=== PATIENT | male | born 1970 | race African-American/Black ===

== ENCOUNTER 2018-01-18 19:27 | Emergency (ER) | payer SELFPAY ==
[2018-01-18] MEDS ORDERED: LORazepam 2 MG/ML VIAL ONE ×2 (19:50→20:56)
[2018-01-18] MEDS ORDERED: THIAMINE 200 MG/2 ML INJ ONE (20:16)
[2018-01-18] MEDS ORDERED: NA CHLORIDE 0.9% 1,000 ML ONE (20:16)
[2018-01-18] MEDS ORDERED: FOLIC ACID 5 MG/ML VIAL ONE (20:17)
[2018-01-18] MEDS ORDERED: CEFTRIAXONE/SWI 1gm 2 GM/20 ML SYR ONE (20:17)
[2018-01-18 20:20] LABS: Barbiturates NEGATIVE (NEGATIVE); Benzodiazepines NEGATIVE (NEGATIVE); Cocaine NEGATIVE (NEGATIVE); METHAMPHETAM NEGATIVE (NEGATIVE); Methadone NEGATIVE (NEGATIVE); Opiates NEGATIVE (NEGATIVE); Phencyclidine NEGATIVE (NEGATIVE); THC Cannibis NEGATIVE (NEGATIVE)
[2018-01-18 20:20] LABS: Arterial Blood Carboxyhemoglob 0.5 % (0-1.5); Blood Gas Oxyhemoglobin 96.7 % (94-97); Blood O2 Saturation 98.1 % (92-98.5)
[2018-01-18 20:27] LABS: ALT/SGPT 20 U/L (12-78); AST/SGOT 15 U/L (15-37); Albumin 4.2 g/dL (3.4-5.0); Alkaline Phosphatase 116 U/L (45-117); BUN Blood Urea Nitrogen 11 mg/dL (7-18); Bicarbonate 21 mmol/L (21-32); Bilirubin Direct 0.1 mg/dL (0-0.2); Bilirubin Total 0.3 mg/dL (0.2-1.0); Glucose Level 99 mg/dL (74-106); Lipase 182 U/L (73-393); Magnesium 2.2 mg/dL (1.8-2.4); NT PRO-BNP 50 pg/mL (<125); Protein, Total 8.2 g/dL (6.4-8.2); Sodium Level 144 mmol/L (136-145); Troponin (Emerg Dept Use Only) < 0.02 ng/mL (0.0-0.045)
[2018-01-18 20:28] LABS: Protime INR 1.03
[2018-01-18 20:32] LABS: Urine Blood NEGATIVE (NEG); Urine Glucose NEGATIVE (NEG); Urine Protein NEGATIVE (NEG); Urine Specific Gravity 1.015 (1.005-1.030); Urine pH 8.5 (5.0-7.0)
--- NOTE | 2018-01-18 20:32 | ER ---
Nurse's Notes [facility] Name: Naeem Melgar Age: 47 yrs Sex: Male : 1970 Arrival Date: 01/18/2018 Time: 19:39 Bed 3 Private MD: Diagnosis: Altered mental status, unspecified-tegretol overdose, toxic;Epileptic seizures related to external causes, not intractable;Bipolar disorder Presentation: 01/18 19:20 Presenting complaint: EMS states: that after not being seen by coworkers and not fc showing up for work for 4 days they called police to do a walfare check on pt. Upon police arrival they had to break into pts home and pt was found on floor in bathroom foaming at the mouth. Pt with eyes open but not responding to any questions. Transition of care: patient was not received from another setting of care. Onset of symptoms was January 18, 2018. Risk Assessment: Do you want to hurt yourself or someone else? Unable to obtain. Initial Sepsis Screen: Does the patient meet any 2 criteria? HR > 90 bpm. Yes Does the patient have a suspected source of infection? No. Patient's initial sepsis screen is negative. Care prior to arrival: None. 19:20 Method Of Arrival: EMS: [facility] 19:20 Acuity: ESPERANZA 2 fc Historical: - Allergies: 19:46 No Known Allergies; fc - Home Meds: 19:46 Unable to obtain [Active]; fc - PMHx: 19:46 Bipolar disorder; fc - PSHx: 19:46 None; fc - Immunization history:: Last tetanus immunization: unknown. - Social history:: Smoking status: Patient uses tobacco products, yes per father. - Ebola Screening: : Patient negative for fever greater than or equal to 101.5 degrees Fahrenheit, and additional compatible Ebola Virus Disease symptoms Patient denies exposure to infectious person Patient denies travel to an Ebola-affected area in the 21 days before illness onset. - Family history:: not pertinent. Screenin:20 Abuse screen: Denies threats or abuse. Nutritional screening: No deficits noted. fc Tuberculosis screening: No symptoms or risk factors identified. Fall Risk Fall in past 12 months (25 points). Secondary diagnosis (15 points) seizures, No IV (0 pts). Ambulatory Aid- None/Bed Rest/Nurse Assist (0 pts). Gait- Normal/Bed Rest/Wheelchair (0 pts) Mental Status- Overestimates/Forgets Limitations (15 pts.). Total Thomas Fall Scale indicates Low Risk Score (25-44 pts). Fall prevention measures have been instituted. Side Rails Up X 2 Placed close to Nursing Station Frequent Obs/Assesments occuring As available Patient and Family Educated on Fall Prevention Program and strategies. Assessment: 19:42 General: Appears in no apparent distress. Behavior is inappropriate for age, listless, aa1 Smells of urine. Pain: Unable to use pain scale. Patient is disoriented. Neuro: Level of Consciousness is awake, listless, Oriented to pt does not respond verbally or participate with assessment. Moves all extremities. Pt moves all extremities when transferred from EMS stretcher however pt does not follow commands and withdraws from noxious stimuli. . Facial symmetry appears normal, Pupils are constricted. Cardiovascular: Heart tones S1 S2 present Rhythm is regular. Respiratory: Airway is patent Respiratory effort is even, unlabored, Respiratory pattern is regular, symmetrical. GI: Abdomen is non-distended. : No deficits noted. EENT: No deficits noted. Derm: Skin is intact, is healthy with good turgor, Skin is pink, warm \T\ dry. Musculoskeletal: Circulation, motion, and sensation intact. Capillary refill < 3 seconds. 20:07 Reassessment: Patient appears in no apparent distress at this time. Accompanied pt to aa CT on monitor. 20:17 Reassessment: Pt back from CT. Father and sister at bedside; updated on pt status and aa1 POC. 21:05 Reassessment: Patient appears in no apparent distress at this time. No changes from aa1 previously documented assessment. Patient and/or family updated on plan of care and expected duration. Pain level reassessed. Father \T\ sister remain at bedside. Report given to LUCA Sinclair at [facility] and transfer paper work signed by father at this time. Awaiting [facility] for transport. 21:45 Reassessment: Patient appears in no apparent distress at this time. No changes from aa1 previously documented assessment. [facility] present for transport. Vital Signs: 19:20 BP 157 / 116; Pulse 96; Resp 20; Temp 98.1(O); Pulse Ox 100% on R/A; Weight 104.33 kg; fc Height 5 ft. 7 in. (170.18 cm); Pain 0/10; 20:00 BP 136 / 91; Pulse 89; Resp 18; Pulse Ox 100% on 2 lpm NC; aa1 21:00 BP 125 / 81; Pulse 86; Resp 16; Temp 97.5; Pulse Ox 100% on 2 lpm NC; aa1 21:45 BP 117 / 75; Pulse 85; Resp 16; Temp 97.2; Pulse Ox 100% on 2 lpm NC; aa1 19:20 Body Mass Index 36.02 (104.33 kg, 170.18 cm) Jose Coma Score: 19:45 Eye Response: spontaneous(4). Verbal Response: none(1). Motor Response: withdraws from aa1 pain(4). Total: 9. 21:45 Eye Response: spontaneous(4). Verbal Response: none(1). Motor Response: withdraws from aa1 pain(4). Total: 9. ED Course: 19:20 Arm band placed on Patient placed in an exam room, on a stretcher. 19:20 Patient has correct armband on for positive identification. Bed in low position. Call fc light in reach. Side rails up X2. Seizure precautions initiated. biochemistry technician on. Pulse ox on. NIBP on. 19:32 Inserted saline lock: 22 gauge in right forearm, using aseptic technique. ,using aseptic technique. per Eduarda SEGOVIA. 19:39 Patient arrived in ED. fc 19:40 Phil Mohan MD is Attending Physician. abdias 19:43 Triage completed. fc 19:[address] via stretcher. vm2 19:50 Oxygen administration via nasal cannula \T\ 2L/min. aa1 19:55 Clemens cath inserted, using sterile technique, 16 Fr., by pa, balloon inflated, to aa1 gravity drainage, urine specimen collected. other Criticore clemens used returned cloudy urine. Patient tolerated well. 20:06 CT Head C Spine In Process Unspecified. EDMS 20:06 CT completed. Patient tolerated procedure well. Patient moved back from CT. nj 20:07 RN/HISTOLOGY AIDE escort patient out of department to CT scan with oxygen, digital account coordinator, ER aa1 tech. 20:10 Urine Dipstick--Ancillary (enter results) Sent. ds4 20:10 Urine Drug Screen Sent. ds4 20:11 EKG done, by ED staff, reviewed by Phil Mohan MD. ds4 20:20 XRAY Chest (1 view) In Process Unspecified. EDMS 20:20 Eduarda Puckett, RN is Primary Nurse. aa1 21:45 No provider procedures requiring assistance completed. Patient transferred, IV remains aa1 in place. Administered Medications: 19:40 Drug: Ativan 2 mg Route: IVP; Site: right forearm; ea 20:40 Follow up: Response: No adverse reaction; Marked relief of symptoms aa1 20:19 Drug: NS 0.9% 1000 ml Route: IV; Rate: 1 bolus; Site: right forearm; ea 20:19 Drug: Thiamine 100 mg Route: IV; Rate: bolus; Site: right forearm; ea 20:50 Follow up: IV Status: Completed infusion aa1 20:20 Drug: foLIC Acid 1 mg Route: IVPB; Site: right forearm; ea 20:33 Drug: Keppra 1000 mg Route: IV; Rate: per protocol; Site: right forearm; aa1 21:09 Follow up: IV Status: Completed infusion aa1 20:34 Drug: Rocephin - (cefTRIAXone) 2 grams Route: IVPB; Infused Over: 30 mins; Site: right ea forearm; 21:09 Follow up: IV Status: Completed infusion aa1 20:46 CANCELLED (Duplicate Order): Benadryl 25 mg IVP once abdias 20:47 CANCELLED (Duplicate Order): COgentin 1 mg IVP once abdias 20:50 Drug: COgentin 2 mg Route: IVP; Site: right forearm; aa1 21:45 Follow up: Response: No adverse reaction; Marked relief of symptoms aa1 20:50 Drug: Ativan 1 mg Route: IVP; Site: right forearm; aa1 21:45 Follow up: Response: No adverse reaction; Marked relief of symptoms aa1 Point of Care Testing: Blood Glucose: 19:50 Blood Glucose: 103 mg/dL; ea Ranges: Outcome: 20:31 ER care complete, transfer ordered by . abdias 21:45 Transferred by ground EMS to [facility], Transfer form completed. aa1 21:45 Condition: stable 21:45 Discharge instructions given to family, Instructed on the need for transfer, Demonstrated understanding of instructions. 21:59 Patient left the ED. aa1 Signatures: Dispatcher [employer] EDMS Eduarda Puckett, RN RN aa1 Phil Mohan MD MD cha Chretien, Felicia, RN RN fc Adama Tovar ds4 Joel Araujo Victoria 2 Ioana Smith RN RN ea
--- NOTE | 2018-01-18 20:32 | EDPHYS ---
Physician Documentation [facility] Name: Naeem Melgar Age: 47 yrs Sex: Male : 1970 Arrival Date: 01/18/2018 Time: 19:39 Bed 3 Private MD: ED Physician Phil Mohan HPI: 01/18 19:43 This 47 yrs old Black Male presents to ER via Unassigned with complaints of Probable abidas Seizure. 19:43 The patient presents after having a possible seizure episode. Character of seizure(s): abdias Loss of consciousness: it is not known if the patient experienced loss of consciousness, Motor activity: generalized, Incontinence: incontinent of bladder, Apnea: it is not know whether or not the patient experienced apnea, Circulation: the patient did not experience evidence of pulse disturbance. Seizure onset: the onset is not known. Context: the seizure(s) was witnessed, by no one. Seizure Hx: the patient has no previous seizure history. Associated injury: The patient did not suffer any apparent associated injury. The patient has not experienced similar symptoms in the past. Historical: - Allergies: 19:46 No Known Allergies; fc - Home Meds: 19:46 Unable to obtain [Active]; fc - PMHx: 19:46 Bipolar disorder; fc - PSHx: 19:46 None; fc - Immunization history:: Last tetanus immunization: unknown. - Social history:: Smoking status: Patient uses tobacco products, yes per father. - Ebola Screening: : Patient negative for fever greater than or equal to 101.5 degrees Fahrenheit, and additional compatible Ebola Virus Disease symptoms Patient denies exposure to infectious person Patient denies travel to an Ebola-affected area in the 21 days before illness onset. - Family history:: not pertinent. ROS: 19:43 Constitutional: Positive for malaise, poor PO intake. abdias 19:43 Neuro: Positive for altered mental status, seizure activity, weakness. 19:47 Respiratory: Negative for shortness of breath, cough, wheezing, and pleuritic chest abdias pain, Back: Negative for injury and pain, Skin: Negative for injury, rash, and discoloration. 19:47 Eyes: Positive for 19:47 Neck: Positive for stiffness. 19:47 Respiratory: Negative for cough. 19:47 MS/extremity: Positive for decreased range of motion, of the right arm, left arm, right leg and left leg. 19:47 Neuro: Positive for Exam: 19:43 Head/Face: Normocephalic, atraumatic. ENT: Nares patent. No nasal discharge, no abdias septal abnormalities noted. Tympanic membranes are normal and external auditory canals are clear. Oropharynx with no redness, swelling, or masses, exudates, or evidence of obstruction, uvula midline. Mucous membranes moist. Respiratory: Lungs have equal breath sounds bilaterally, clear to auscultation and percussion. No rales, rhonchi or wheezes noted. No increased work of breathing, no retractions or nasal flaring. Abdomen/GI: Soft, non-tender, with normal bowel sounds. No distension or tympany. No guarding or rebound. No evidence of tenderness throughout. Male : Normal genitalia with no discharge or lesions. Skin: Warm, dry with normal turgor. Normal color with no rashes, no lesions, and no evidence of cellulitis. MS/ Extremity: Pulses equal, no cyanosis. Neurovascular intact. Full, normal range of motion. 19:43 Neck: External neck: is normal. 19:43 Cardiovascular: Rate: normal, Rhythm: regular, Pulses: Pulses are 4+ in bilateral radial, brachial, femoral, popliteal, posterior tibial and and dorsalis pedis arteries.. Heart sounds: normal, Edema: JVD: is not appreciated. Vital Signs: 19:20 BP 157 / 116; Pulse 96; Resp 20; Temp 98.1(O); Pulse Ox 100% on R/A; Weight 104.33 kg; fc Height 5 ft. 7 in. (170.18 cm); Pain 0/10; 20:00 BP 136 / 91; Pulse 89; Resp 18; Pulse Ox 100% on 2 lpm NC; aa1 21:00 BP 125 / 81; Pulse 86; Resp 16; Temp 97.5; Pulse Ox 100% on 2 lpm NC; aa1 21:45 BP 117 / 75; Pulse 85; Resp 16; Temp 97.2; Pulse Ox 100% on 2 lpm NC; aa1 19:20 Body Mass Index 36.02 (104.33 kg, 170.18 cm) Jose Coma Score: 19:45 Eye Response: spontaneous(4). Verbal Response: none(1). Motor Response: withdraws from aa1 pain(4). Total: 9. 21:45 Eye Response: spontaneous(4). Verbal Response: none(1). Motor Response: withdraws from aa1 pain(4). Total: 9. MDM: 19:40 Patient medically screened. [facility] 19:43 Data reviewed: vital signs, nurses notes, lab test result(s), EKG, radiologic studies. [facility] 01/18 19:42 Order name: Basic Metabolic Panel; Complete Time: 20:28 [facility] 01/18 19:42 Order name: CBC with Diff; Complete Time: 21:22 [facility] 01/18 19:42 Order name: LFT's; Complete Time: 20:28 [facility] 01/18 19:42 Order name: Magnesium; Complete Time: 20:28 [facility] 01/18 19:42 Order name: NT PRO-BNP; Complete Time: 20:28 [facility] 01/18 19:42 Order name: PT-INR; Complete Time: 20:35 [facility] 01/18 19:42 Order name: Troponin (emerg Dept Use Only); Complete Time: 20:28 [facility] 01/18 19:42 Order name: Lipase; Complete Time: 20:28 [facility] 01/18 19:42 Order name: Acetaminophen; Complete Time: 20:28 [facility] 01/18 19:42 Order name: ETOH Level; Complete Time: 20:28 [facility] 01/18 19:42 Order name: Ptt, Activated; Complete Time: 20:35 [facility] 01/18 19:42 Order name: Salicylate; Complete Time: 20:43 [facility] 01/18 19:42 Order name: Urine Drug Screen; Complete Time: 20:28 [facility] 01/18 19:42 Order name: ABG; Complete Time: 20:35 [facility] 01/18 19:42 Order name: XRAY Chest (1 view); Complete Time: 20:43 [facility] 01/18 19:42 Order name: CT Head C Spine; Complete Time: 20:43 [facility] 01/18 19:47 Order name: Blood Culture Adult (2) [facility] 01/18 19:47 Order name: Procalcitonin; Complete Time: 20:43 [facility] 01/18 19:47 Order name: Lactate; Complete Time: 21:22 [facility] 01/18 20:01 Order name: Urine Dipstick--Ancillary (enter results); Complete Time: 20:35 ok 01/18 20:33 Order name: Tegretol Level; Complete Time: 21:24 [facility] 01/18 20:38 Order name: CK; Complete Time: 21:22 [facility] 01/18 20:38 Order name: Ckmb; Complete Time: 21:22 [facility] 01/18 20:39 Order name: TSH; Complete Time: 21:22 [facility] 01/18 21:07 Order name: Manual Differential; Complete Time: 21:22 EDMS 01/18 19:42 Order name: EKG; Complete Time: 19:43 [facility] 01/18 19:42 Order name: Cardiac monitoring; Complete Time: 20:10 [facility] 01/18 19:42 Order name: EKG - Nurse/Tech; Complete Time: 20:10 [facility] 01/18 19:42 Order name: IV Saline Lock; Complete Time: 20:10 [facility] 01/18 19:42 Order name: Labs collected and sent; Complete Time: 20:11 [facility] 01/18 19:42 Order name: O2 Per Protocol; Complete Time: 20:11 [facility] 01/18 19:42 Order name: O2 Sat Monitoring; Complete Time: 20:11 [facility] 01/18 19:42 Order name: Urine Dipstick-Ancillary (obtain specimen); Complete Time: 20:10 [facility] 01/18 19:42 Order name: De Los Santos; Complete Time: 19:59 [facility] 01/18 19:42 Order name: Seizure Precautions; Complete Time: 20:25 [facility] Administered Medications: 19:40 Drug: Ativan 2 mg Route: IVP; Site: right forearm; ea 20:40 Follow up: Response: No adverse reaction; Marked relief of symptoms aa1 20:19 Drug: NS 0.9% 1000 ml Route: IV; Rate: 1 bolus; Site: right forearm; ea 20:19 Drug: Thiamine 100 mg Route: IV; Rate: bolus; Site: right forearm; ea 20:50 Follow up: IV Status: Completed infusion aa1 20:20 Drug: foLIC Acid 1 mg Route: IVPB; Site: right forearm; ea 20:33 Drug: Keppra 1000 mg Route: IV; Rate: per protocol; Site: right forearm; aa1 21:09 Follow up: IV Status: Completed infusion aa1 20:34 Drug: Rocephin - (cefTRIAXone) 2 grams Route: IVPB; Infused Over: 30 mins; Site: right ea forearm; 21:09 Follow up: IV Status: Completed infusion aa1 20:46 CANCELLED (Duplicate Order): Benadryl 25 mg IVP once [facility] 20:47 CANCELLED (Duplicate Order): COgentin 1 mg IVP once abdias 20:50 Drug: COgentin 2 mg Route: IVP; Site: right forearm; aa1 21:45 Follow up: Response: No adverse reaction; Marked relief of symptoms aa1 20:50 Drug: Ativan 1 mg Route: IVP; Site: right forearm; aa1 21:45 Follow up: Response: No adverse reaction; Marked relief of symptoms aa1 Point of Care Testing: Blood Glucose: 19:50 Blood Glucose: 103 mg/dL; ea Ranges: Critical Glucose Levels:Adult <50 mg/dl or >400 mg/dl <40 mg/dl or >180 mg/dl Disposition: 01/18/18 20:31 Transfer ordered to [facility]. Diagnosis are Altered mental status, unspecified - tegretol overdose, toxic, Epileptic seizures related to external causes, not intractable, Bipolar disorder. - Reason for transfer: Higher level of care. - Accepting physician is to [facility]. - Condition is Serious. - Problem is new. - Symptoms have improved. Signatures: Dispatcher [employer] EDMS Eduarda Puckett RN RN aa1 Phil Mohan MD MD cha Chretien, Felicia, RN RN Ioana Smith RN RN ea Corrections: (The following items were deleted from the chart) 20:46 20:46 Benadryl 25 mg IVP once ordered. [facility] 20:47 20:46 COgentin 1 mg IVP once ordered. [facility] 21:32 20:31 01/18/2018 20:31 Transfer ordered to [facility]. Diagnosis is abdias Altered mental status, unspecified; Epileptic seizures related to external causes, not intractable; Bipolar disorder. Reason for transfer: Higher level of care. Accepting physician is to [facility]. Condition is Serious. Problem is new. Symptoms have improved. [facility] 21:59 21:32 01/18/2018 20:31 Transfer ordered to [facility]. Diagnosis is aa1 Altered mental status, unspecified - tegretol overdose, toxic; Epileptic seizures related to external causes, not intractable; Bipolar disorder. Reason for transfer: Higher level of care. Accepting physician is to [facility]. Condition is Serious. Problem is new. Symptoms have improved. abdias
[2018-01-18 20:34] LABS: Absolute Lymphocytes (CBC) 0.5 K/uL (0.7-4.9); Absolute Monocytes 0.4 K/uL (0.1-1.3); Absolute Neutrophil 11.8 K/uL (1.8-8.0); Basophils % 1.8 % (0-1.3); Eosinophils % 0.2 % (0-4.4); Hematocrit 46.5 % (39.6-49.0); Lymphocytes % 3.8 % (15.3-44.8); MCH 31.7 pg (27.0-35.0); MCV 95.5 fL (80-100); MPV 9.4 fL (7.6-11.3); Monocytes % 2.8 % (3.3-12.3); RBC Red Blood Cell Count 4.87 M/uL (4.33-5.43)
--- NOTE | 2018-01-18 20:35 | RAD REPORT ---
EXAM DESCRIPTION: CT - [id number] - 01/18/2018 8:06 pm CLINICAL HISTORY: Trauma, head and neck injury. ams;Weakness COMPARISON: No comparisons TECHNIQUE: Axial 5 mm thick images of the head were obtained. Axial 2 mm thick images of the cervical spine were obtained with sagittal and coronal reconstruction images generated and reviewed. All CT scans are performed using dose optimization technique as appropriate and may include automated exposure control or mA/KV adjustment according to patient size. FINDINGS: CT HEAD WITHOUT CONTRAST: No acute hemorrhage, hydrocephalus or extra-axial collection is identified.No areas of brain edema or midline shift. Gliosis involving the right temporal lobe is likely related to previous trauma or inf arct. The paranasal sinuses and mastoids are clear.The calvarium is intact. CT CERVICAL SPINE WITHOUT CONTRAST: No fracture or subluxation.Large anterior osteophytes are present.No prevertebral soft tissues swelli ng is identified. The upper are lung joshua are emphysematous. IMPRESSION: No acute intracranial or cervical spine findings.
--- NOTE | 2018-01-18 20:36 | RAD REPORT ---
EXAM DESCRIPTION: RAD - Chest Single View - 01/18/2018 8:21 pm CLINICAL HISTORY: COUGH Chest pain. COMPARISON: No comparisons FINDINGS: Portable technique limits examination quality. The lungs are grossly clear. The heart is normal in size. No displaced fractures. IMPRESSION: No acute intrathoracic process suspected.
[2018-01-18] MEDS ORDERED: BENZTROPINE 2 MG/2 ML VIAL ONE (20:56)
[2018-01-18 21:02] LABS: CKMB Creatine Kinase MB < 1.0 ng/mL (0.3-3.6); Creatine Phosphokinase 216 U/L (39-308); Thyroid Stimulating Hormone 0.125 uIU/mL (0.360-3.740)
[2018-01-18 21:08] LABS: Blood Morphology Comment NOT SEEN (NOT SEEN); Platelet Estimate ADEQ
--- NOTE | 2018-01-19 06:29 | EKG ---
Test Date: 2018-01-18 Test Time: 19:55:25 Accounting Officer: ISAI MEASUREMENT RESULTS: Intervals: Rate: 91 MO: 188 QRSD: 90 QT: 378 QTc: 464 Silva: P: 54 MO: 188 QRS: 23 T: 43 INTERPRETIVE STATEMENTS: Normal sinus rhythm Nonspecific ST abnormality Abnormal ECG No previous ECG available for comparison Electronically Signed On 01-19-18 06:28:50 SOFTWARE DEVELOPMENT COORDINATOR by Rahat Caba
== END 2018-01-18 21:59 | disposition short-term general hospital (02) ==
LOC: ER 19:27
DX: T42.1X1A Poisoning by iminostilbenes, accidental (unintentional), initial encounter (principal); G40.509 Epileptic seizures related to external causes, not intractable, without status epilepticus; F31.9 Bipolar disorder, unspecified; Z72.0 Tobacco use
CPT/HCPCS: 36415; 51702; 70450; 71045; 72125; 80048; 80076; 80156; 80307; 80320; 80329; 81003; 82550; 82553; 82805; 82962; 83605; 83690; 83735; 83880; 84145; 84443; 84484; 85025; 85610; 85730; 87040; 87205; 93005; 96365; 96367; 96375; 99285; J0515; J0696; J3411; J7030

== ENCOUNTER 2018-03-17 15:50 | Emergency (ER) | payer SELFPAY ==
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
--- OUTSIDE RECORDS SUMMARY | 2018-03-17 15:55 | XMS REPORT ---
:1970 [facility] Address [address] [place] [address] Care Team Providers Name Role Phone GOSIA FULLER Unavailable Unavailable Problems This patient has no known problems. Allergies, Adverse Reactions, Alerts This patient has no known allergies or adverse reactions. Medications This patient has no known medications. Results Test Description Test Time Test Comments Text Results Atomic Results Result Comments POCT-GLUCOSE METER 2018-01-24 12:11:00 Test Item Value Reference Range Comments POC-GLUCOSE METER (BEAKER) (test 86 mg/dL 70-110 TESTED AT [address] cltx=0881) [place] [id number] POCT-GLUCOSE [id number] 08:39:00 Test Item Value Reference Range Comments POC-GLUCOSE METER (BEAKER) 111 mg/dL 70-110 TESTED AT [address] (test lbxp=0717) [facility] [address] BASIC METABOLIC [id number] 06:12:00 Test Item Value Reference Range Comments SODIUM (BEAKER) (test 142 meq/L 136-145 zrtm=525) POTASSIUM (BEAKER) (test 3.7 meq/L 3.5-5.1 mrto=142) CHLORIDE (BEAKER) (test 113 meq/L 98-107 llia=338) CO2 (BEAKER) (test 25 meq/L 22-29 ejge=726) BLOOD UREA NITROGEN 13 mg/dL 7-21 (BEAKER) (test bxgf=303) CREATININE (BEAKER) (test 0.82 mg/dL 0.57-1.25 erma=598) GLUCOSE RANDOM (BEAKER) 89 mg/dL 70-105 (test tjjt=348) CALCIUM (BEAKER) (test 9.0 mg/dL 8.4-10.2 jblx=424) EGFR (BEAKER) (test mL/min/1.73 sq m INSUFFICIENT CLINICAL DATA lwmt=3388) TO CALCULATE ESTIMATED GFR. CBC W/PLT COUNT & AUTO [id number] 05:34:00 Test Item Value Reference Range Comments WHITE BLOOD CELL COUNT (BEAKER) (test hzzi=393) 8.5 K/ L 3.5-10.5 RED BLOOD CELL COUNT (BEAKER) (test cxzl=681) 4.23 M/ L 4.63-6.08 HEMOGLOBIN (BEAKER) (test znbt=671) 13.2 GM/DL 13.7-17.5 HEMATOCRIT (BEAKER) (test eaog=821) 38.8 % 40.1-51.0 MEAN CORPUSCULAR VOLUME (BEAKER) (test npfx=928) 91.7 fL 79.0-92.2 MEAN CORPUSCULAR HEMOGLOBIN (BEAKER) (test 31.2 pg 25.7-32.2 conz=446) MEAN CORPUSCULAR HEMOGLOBIN CONC (BEAKER) (test 34.0 GM/DL 32.3-36.5 uxxe=790) RED CELL DISTRIBUTION WIDTH (BEAKER) (test 13.6 % 11.6-14.4 ihal=934) PLATELET COUNT (BEAKER) (test gipu=742) 259 K/CU MM 150-450 MEAN PLATELET VOLUME (BEAKER) (test vnpr=515) 10.4 fL 9.4-12.4 NUCLEATED RED BLOOD CELLS (BEAKER) (test 0 /100 WBC 0-0 tuyj=893) NEUTROPHILS RELATIVE PERCENT (BEAKER) (test 53 % iemq=873) LYMPHOCYTES RELATIVE PERCENT (BEAKER) (test 35 % zsuo=141) MONOCYTES RELATIVE PERCENT (BEAKER) (test 9 % vjrr=397) EOSINOPHILS RELATIVE PERCENT (BEAKER) (test 3 % uqva=771) BASOPHILS RELATIVE PERCENT (BEAKER) (test 1 % loqw=280) NEUTROPHILS ABSOLUTE COUNT (BEAKER) (test 4.53 K/ L 1.78-5.38 mkma=969) LYMPHOCYTES ABSOLUTE COUNT (BEAKER) (test 2.95 K/ L 1.32-3.57 otty=701) MONOCYTES ABSOLUTE COUNT (BEAKER) (test 0.77 K/ L 0.30-0.82 ugox=005) EOSINOPHILS ABSOLUTE COUNT (BEAKER) (test 0.21 K/ L 0.04-0.54 wtmo=087) BASOPHILS ABSOLUTE COUNT (BEAKER) (test 0.05 K/ L 0.01-0.08 pmsm=287) IMMATURE GRANULOCYTES-RELATIVE PERCENT (BEAKER) 0 % 0-1 (test acgr=8007) BLOOD [id number] 05:01:00 Test Item Value Reference Range Comments CULTURE (BEAKER) (test oisj=9548) No growth in 5 days BLOOD [id number] 05:01:00 Test Item Value Reference Range Comments CULTURE (BEAKER) (test ddid=5249) No growth in 5 days POCT-GLUCOSE [id number] 21:53:00 Test Item Value Reference Range Comments POC-GLUCOSE METER (BEAKER) 104 mg/dL 70-110 TESTED AT [address] (test xncb=5444) [place] [id number] POCT-GLUCOSE [id number] 16:41:00 Test Item Value Reference Range Comments POC-GLUCOSE METER (BEAKER) 92 mg/dL 70-110 TESTED AT [address] (test ywpt=9078) [place] [id number] POCT-GLUCOSE [id number] 11:59:00 Test Item Value Reference Range Comments POC-GLUCOSE METER (BEAKER) 89 mg/dL 70-110 TESTED AT [address] (test atmd=1822) [facility] [address] BASIC METABOLIC [id number] 09:09:00 Test Item Value Reference Range Comments SODIUM (BEAKER) (test 141 meq/L 136-145 jnjt=801) POTASSIUM (BEAKER) (test 3.1 meq/L 3.5-5.1 ikak=718) CHLORIDE (BEAKER) (test 111 meq/L 98-107 qgbk=666) CO2 (BEAKER) (test 24 meq/L 22-29 sacr=773) BLOOD UREA NITROGEN 8 mg/dL 7-21 (BEAKER) (test gwdb=799) CREATININE (BEAKER) (test 0.87 mg/dL 0.57-1.25 ksfe=492) GLUCOSE RANDOM (BEAKER) 145 mg/dL 70-105 (test zerb=862) CALCIUM (BEAKER) (test 9.3 mg/dL 8.4-10.2 dbdj=270) EGFR (BEAKER) (test mL/min/1.73 sq m INSUFFICIENT CLINICAL DATA djbv=2340) TO CALCULATE ESTIMATED GFR. CBC W/PLT COUNT & AUTO [id number] 06:12:00 Test Item Value Reference Range Comments WHITE BLOOD CELL COUNT (BEAKER) (test bbot=143) 7.6 K/ L 3.5-10.5 RED BLOOD CELL COUNT (BEAKER) (test tbdx=596) 4.32 M/ L 4.63-6.08 HEMOGLOBIN (BEAKER) (test cqbb=295) 13.6 GM/DL 13.7-17.5 HEMATOCRIT (BEAKER) (test ycsj=885) 39.6 % 40.1-51.0 MEAN CORPUSCULAR VOLUME (BEAKER) (test mjxb=899) 91.7 fL 79.0-92.2 MEAN CORPUSCULAR HEMOGLOBIN (BEAKER) (test 31.5 pg 25.7-32.2 prxb=495) MEAN CORPUSCULAR HEMOGLOBIN CONC (BEAKER) (test 34.3 GM/DL 32.3-36.5 jdco=392) RED CELL DISTRIBUTION WIDTH (BEAKER) (test 13.2 % 11.6-14.4 okjr=907) PLATELET COUNT (BEAKER) (test oofa=500) 256 K/CU MM 150-450 MEAN PLATELET VOLUME (BEAKER) (test skof=193) 10.0 fL 9.4-12.4 NUCLEATED RED BLOOD CELLS (BEAKER) (test 0 /100 WBC 0-0 bkse=306) NEUTROPHILS RELATIVE PERCENT (BEAKER) (test 45 % kpoa=219) LYMPHOCYTES RELATIVE PERCENT (BEAKER) (test 43 % xseb=224) MONOCYTES RELATIVE PERCENT (BEAKER) (test 9 % vodr=351) EOSINOPHILS RELATIVE PERCENT (BEAKER) (test 3 % ltyp=919) BASOPHILS RELATIVE PERCENT (BEAKER) (test 0 % bgdr=687) NEUTROPHILS ABSOLUTE COUNT (BEAKER) (test 3.39 K/ L 1.78-5.38 bzvj=429) LYMPHOCYTES ABSOLUTE COUNT (BEAKER) (test 3.26 K/ L 1.32-3.57 ovyy=235) MONOCYTES ABSOLUTE COUNT (BEAKER) (test 0.71 K/ L 0.30-0.82 enck=389) EOSINOPHILS ABSOLUTE COUNT (BEAKER) (test 0.19 K/ L 0.04-0.54 wtml=046) BASOPHILS ABSOLUTE COUNT (BEAKER) (test 0.03 K/ L 0.01-0.08 cafh=357) IMMATURE GRANULOCYTES-RELATIVE PERCENT (BEAKER) 0 % 0-1 (test zyxe=9902) POCT-GLUCOSE [id number] 23:30:00 Test Item Value Reference Range Comments POC-GLUCOSE METER (BEAKER) 100 mg/dL 70-110 TESTED AT [address] (test htdz=8819) [facility] [address] POCT-GLUCOSE [id number] 17:12:00 Test Item Value Reference Range Comments POC-GLUCOSE METER (BEAKER) 102 mg/dL 70-110 TESTED AT [address] (test fuur=9061) [place] [id number] POCT-GLUCOSE [id number] 12:08:00 Test Item Value Reference Range Comments POC-GLUCOSE METER (BEAKER) 117 mg/dL 70-110 TESTED AT [address] (test gdpm=9204) [place] [id number] BASIC METABOLIC [id number] 06:24:00 Test Item Value Reference Range Comments SODIUM (BEAKER) (test 142 meq/L 136-145 cmcs=228) POTASSIUM (BEAKER) (test 3.3 meq/L 3.5-5.1 ixkr=593) CHLORIDE (BEAKER) (test 114 meq/L 98-107 fwzy=034) CO2 (BEAKER) (test 22 meq/L 22-29 ywin=469) BLOOD UREA NITROGEN 11 mg/dL 7-21 (BEAKER) (test dvtv=501) CREATININE (BEAKER) (test 0.86 mg/dL 0.57-1.25 ixhl=556) GLUCOSE RANDOM (BEAKER) 107 mg/dL 70-105 (test fovd=730) CALCIUM (BEAKER) (test 9.3 mg/dL 8.4-10.2 xaam=469) EGFR (BEAKER) (test mL/min/1.73 sq m INSUFFICIENT CLINICAL DATA akdr=9336) TO CALCULATE ESTIMATED GFR. CBC W/PLT COUNT & AUTO [id number] 05:44:00 Test Item Value Reference Range Comments WHITE BLOOD CELL COUNT (BEAKER) (test igsr=474) 8.8 K/ L 3.5-10.5 RED BLOOD CELL COUNT (BEAKER) (test abnp=447) 4.45 M/ L 4.63-6.08 HEMOGLOBIN (BEAKER) (test jmif=448) 14.0 GM/DL 13.7-17.5 HEMATOCRIT (BEAKER) (test ynpi=813) 41.2 % 40.1-51.0 MEAN CORPUSCULAR VOLUME (BEAKER) (test wvce=942) 92.6 fL 79.0-92.2 MEAN CORPUSCULAR HEMOGLOBIN (BEAKER) (test 31.5 pg 25.7-32.2 rvdy=543) MEAN CORPUSCULAR HEMOGLOBIN CONC (BEAKER) (test 34.0 GM/DL 32.3-36.5 tghs=957) RED CELL DISTRIBUTION WIDTH (BEAKER) (test 13.9 % 11.6-14.4 qmhz=859) PLATELET COUNT (BEAKER) (test bjbr=289) 261 K/CU MM 150-450 MEAN PLATELET VOLUME (BEAKER) (test rlvi=451) 10.1 fL 9.4-12.4 NUCLEATED RED BLOOD CELLS (BEAKER) (test 0 /100 WBC 0-0 jgwo=719) NEUTROPHILS RELATIVE PERCENT (BEAKER) (test 63 % onmf=936) LYMPHOCYTES RELATIVE PERCENT (BEAKER) (test 26 % qmce=872) MONOCYTES RELATIVE PERCENT (BEAKER) (test 11 % hkip=926) EOSINOPHILS RELATIVE PERCENT (BEAKER) (test 1 % blxj=620) BASOPHILS RELATIVE PERCENT (BEAKER) (test 0 % mhwe=052) NEUTROPHILS ABSOLUTE COUNT (BEAKER) (test 5.51 K/ L 1.78-5.38 ljrw=842) LYMPHOCYTES ABSOLUTE COUNT (BEAKER) (test 2.25 K/ L 1.32-3.57 rjzw=935) MONOCYTES ABSOLUTE COUNT (BEAKER) (test 0.93 K/ L 0.30-0.82 jeiy=440) EOSINOPHILS ABSOLUTE COUNT (BEAKER) (test 0.09 K/ L 0.04-0.54 hgma=604) BASOPHILS ABSOLUTE COUNT (BEAKER) (test 0.03 K/ L 0.01-0.08 mxgu=076) IMMATURE GRANULOCYTES-RELATIVE PERCENT (BEAKER) 0 % 0-1 (test wzqb=3887) POCT-GLUCOSE [id number] 05:34:00 Test Item Value Reference Range Comments POC-GLUCOSE METER (BEAKER) 104 mg/dL 70-110 TESTED AT [facility] [address] [facility] (test lpda=0583) [facility] [address] POCT-GLUCOSE [id number] 00:23:00 Test Item Value Reference Range Comments POC-GLUCOSE METER (BEAKER) 104 mg/dL 70-110 TESTED AT [address] (test oseq=0840) [place] [address] RAD, ABDOMEN/KUB, 1 VIEW [id number] 18:56:00Reason for exam:->corpak placementFINAL REPORT EXAMINATION: SUPINE ABDOMEN CLINICAL INDICATION: FEEDING TUBE PLACEMENT IMPRESSION: Compared with 2017. The tip of the feeding tube projects over the left upper abdomen in the region of the stomach. Bowel gas pattern is overall nonspecific with mild gaseous distention of the stomach, small bowel and colon. Signed: Nils Figueroa MDReport Verified Date/Time: 01/21/2018 18:56:38 Reading Location: [address] Reading Room POCT-GLUCOSE [id number] 13:01:00 Test Item Value Reference Range Comments POC-GLUCOSE METER (BEAKER) 106 mg/dL 70-110 TESTED AT [address] (test xjev=4445) [facility] [address] BASIC METABOLIC [id number] 05:21:00 Test Item Value Reference Range Comments SODIUM (BEAKER) (test 146 meq/L 136-145 lxsd=392) POTASSIUM (BEAKER) (test 3.5 meq/L 3.5-5.1 Specimen slightly fvgo=852) hemolyzed CHLORIDE (BEAKER) (test 117 meq/L 98-107 gbhh=435) CO2 (BEAKER) (test 21 meq/L 22-29 medb=679) BLOOD UREA NITROGEN 13 mg/dL 7-21 (BEAKER) (test sicm=023) CREATININE (BEAKER) (test 1.10 mg/dL 0.57-1.25 Specimen slightly tjnm=784) hemolyzed GLUCOSE RANDOM (BEAKER) 102 mg/dL 70-105 (test gjfw=682) CALCIUM (BEAKER) (test 9.4 mg/dL 8.4-10.2 rgyq=434) EGFR (BEAKER) (test mL/min/1.73 sq m INSUFFICIENT CLINICAL DATA xcro=1472) TO CALCULATE ESTIMATED GFR. CBC W/PLT COUNT & AUTO [id number] 05:01:00 Test Item Value Reference Range Comments WHITE BLOOD CELL COUNT (BEAKER) (test rona=666) 8.7 K/ L 3.5-10.5 RED BLOOD CELL COUNT (BEAKER) (test jisd=930) 4.70 M/ L 4.63-6.08 HEMOGLOBIN (BEAKER) (test snha=140) 14.9 GM/DL 13.7-17.5 HEMATOCRIT (BEAKER) (test gqbj=863) 44.6 % 40.1-51.0 MEAN CORPUSCULAR VOLUME (BEAKER) (test okiw=753) 94.9 fL 79.0-92.2 MEAN CORPUSCULAR HEMOGLOBIN (BEAKER) (test 31.7 pg 25.7-32.2 trey=981) MEAN CORPUSCULAR HEMOGLOBIN CONC (BEAKER) (test 33.4 GM/DL 32.3-36.5 etii=935) RED CELL DISTRIBUTION WIDTH (BEAKER) (test 14.0 % 11.6-14.4 fksm=540) PLATELET COUNT (BEAKER) (test wkci=337) 302 K/CU MM 150-450 MEAN PLATELET VOLUME (BEAKER) (test uluz=371) 10.9 fL 9.4-12.4 NUCLEATED RED BLOOD CELLS (BEAKER) (test 0 /100 WBC 0-0 talj=131) NEUTROPHILS RELATIVE PERCENT (BEAKER) (test 60 % ksgt=705) LYMPHOCYTES RELATIVE PERCENT (BEAKER) (test 29 % vcff=695) MONOCYTES RELATIVE PERCENT (BEAKER) (test 10 % dtqu=007) EOSINOPHILS RELATIVE PERCENT (BEAKER) (test 1 % gomm=160) BASOPHILS RELATIVE PERCENT (BEAKER) (test 0 % urlg=943) NEUTROPHILS ABSOLUTE COUNT (BEAKER) (test 5.20 K/ L 1.78-5.38 xmxo=973) LYMPHOCYTES ABSOLUTE COUNT (BEAKER) (test 2.51 K/ L 1.32-3.57 rloz=141) MONOCYTES ABSOLUTE COUNT (BEAKER) (test 0.86 K/ L 0.30-0.82 qkui=232) EOSINOPHILS ABSOLUTE COUNT (BEAKER) (test 0.09 K/ L 0.04-0.54 xqqe=103) BASOPHILS ABSOLUTE COUNT (BEAKER) (test 0.03 K/ L 0.01-0.08 qrzk=797) IMMATURE GRANULOCYTES-RELATIVE PERCENT (BEAKER) 0 % 0-1 (test lbjh=2618) URINE [id number] 03:38:00 Test Item Value Reference Range Comments CULTURE (BEAKER) (test oxic=8068) No growth POCT-GLUCOSE [id number] 23:56:00 Test Item Value Reference Range Comments POC-GLUCOSE METER (BEAKER) 154 mg/dL 70-110 TESTED AT [address] (test hysg=8761) [place] [id number] POCT-GLUCOSE [id number] 17:22:00 Test Item Value Reference Range Comments POC-GLUCOSE METER (BEAKER) 133 mg/dL 70-110 TESTED AT [address] (test qexi=2203) [place] [id number] POCT-GLUCOSE [id number] 12:36:00 Test Item Value Reference Range Comments POC-GLUCOSE METER (BEAKER) 113 mg/dL 70-110 TESTED AT [address] (test vyzm=0071) [facility] [address] POCT-GLUCOSE [id number] 08:16:00 Test Item Value Reference Range Comments POC-GLUCOSE METER (BEAKER) 118 mg/dL 70-110 TESTED AT [address] (test sozo=8632) [facility] [address] POCT-GLUCOSE [id number] 06:10:00 Test Item Value Reference Range Comments POC-GLUCOSE METER (BEAKER) 92 mg/dL 70-110 TESTED AT [address] (test ziqr=6635) [facility] [address] BASIC METABOLIC [id number] 05:46:00 Test Item Value Reference Range Comments SODIUM (BEAKER) (test 143 meq/L 136-145 xinj=260) POTASSIUM (BEAKER) (test 4.2 meq/L 3.5-5.1 Specimen slightly qrke=835) hemolyzed CHLORIDE (BEAKER) (test 118 meq/L 98-107 qveh=090) CO2 (BEAKER) (test 17 meq/L 22-29 qzzw=420) BLOOD UREA NITROGEN 13 mg/dL 7-21 (BEAKER) (test xdzo=390) CREATININE (BEAKER) (test 1.09 mg/dL 0.57-1.25 Specimen slightly ziks=611) hemolyzed GLUCOSE RANDOM (BEAKER) 88 mg/dL 70-105 (test ghrx=881) CALCIUM (BEAKER) (test 9.5 mg/dL 8.4-10.2 bidx=086) EGFR (BEAKER) (test mL/min/1.73 sq m INSUFFICIENT CLINICAL DATA tvbu=7818) TO CALCULATE ESTIMATED GFR. CBC W/PLT COUNT & AUTO [id number] 05:05:00 Test Item Value Reference Range Comments WHITE BLOOD CELL COUNT (BEAKER) (test jenu=468) 9.1 K/ L 3.5-10.5 RED BLOOD CELL COUNT (BEAKER) (test turm=835) 4.92 M/ L 4.63-6.08 HEMOGLOBIN (BEAKER) (test kwrk=971) 15.6 GM/DL 13.7-17.5 HEMATOCRIT (BEAKER) (test whni=067) 47.6 % 40.1-51.0 MEAN CORPUSCULAR VOLUME (BEAKER) (test wgyv=550) 96.7 fL 79.0-92.2 MEAN CORPUSCULAR HEMOGLOBIN (BEAKER) (test 31.7 pg 25.7-32.2 zoig=748) MEAN CORPUSCULAR HEMOGLOBIN CONC (BEAKER) (test 32.8 GM/DL 32.3-36.5 ggxu=172) RED CELL DISTRIBUTION WIDTH (BEAKER) (test 14.0 % 11.6-14.4 mdnq=154) PLATELET COUNT (BEAKER) (test eycm=103) 273 K/CU MM 150-450 MEAN PLATELET VOLUME (BEAKER) (test xljs=145) 10.4 fL 9.4-12.4 NUCLEATED RED BLOOD CELLS (BEAKER) (test 0 /100 WBC 0-0 lbnj=019) NEUTROPHILS RELATIVE PERCENT (BEAKER) (test 60 % ehlg=269) LYMPHOCYTES RELATIVE PERCENT (BEAKER) (test 27 % uirq=103) MONOCYTES RELATIVE PERCENT (BEAKER) (test 11 % ivrr=313) EOSINOPHILS RELATIVE PERCENT (BEAKER) (test 1 % lpfg=416) BASOPHILS RELATIVE PERCENT (BEAKER) (test 0 % botd=942) NEUTROPHILS ABSOLUTE COUNT (BEAKER) (test 5.43 K/ L 1.78-5.38 vhhl=057) LYMPHOCYTES ABSOLUTE COUNT (BEAKER) (test 2.48 K/ L 1.32-3.57 wjfy=860) MONOCYTES ABSOLUTE COUNT (BEAKER) (test 0.98 K/ L 0.30-0.82 uoqy=701) EOSINOPHILS ABSOLUTE COUNT (BEAKER) (test 0.08 K/ L 0.04-0.54 wxjw=505) BASOPHILS ABSOLUTE COUNT (BEAKER) (test 0.03 K/ L 0.01-0.08 labp=562) IMMATURE GRANULOCYTES-RELATIVE PERCENT (BEAKER) 1 % 0-1 (test iefc=7172) POCT-GLUCOSE [id number] 23:48:00 Test Item Value Reference Range Comments POC-GLUCOSE METER (BEAKER) 117 mg/dL 70-110 TESTED AT [address] (test hygq=0764) [place] [address] EEG AWAKE AND [id number] 18:41:00Reason for exam:->CBZ toxicity, evaluate for subclinical seizuresELECTROENCEPHALOGRAM EEG NUMBER: [id number] EXAM DATE: JANUARY 19, 2018 START TIME: 1223 END TIME: 1245 TECHNICAL SUMMARY There is no occipital dominantrhythm. There is low voltage 10 to 12 Hz activity in all regions. Low voltage 18 to 22 Hz activityis present in anterior regions. Low voltage 2 to 3 Hz activity is present in anterior and posteriorregions. IMPRESSION: This patient's electroencephalogram is abnormal. There is no occipital dominant rhythm and the EEG is low in voltage in all regions. The findings are consistent with the presence of a diffuse brain disturbance. No epileptiform activity is present. No electrographic seizureswere recorded. Lydia Perez MD ICD10: R56.9 CPT: 56466 POCT-GLUCOSE [id number] 17:47:00 Test Item Value Reference Range Comments POC-GLUCOSE METER (BEAKER) 92 mg/dL 70-110 TESTED AT [address] (test njwq=1313) [facility] [address] RAD, ABDOMEN/KUB, 1 VIEW [id number] 16:04:00Reason for exam:->cor radha placementShould this be performed at the bedside?->YesFINAL REPORT Technique: Supine radiograph of the abdomen dated 01/19/2018. HISTORY: Corpak placement. COMPARISON: None IMPRESSION:Enteric tube is seen with the tip in the second portion of the duodenum. There are minimally dilated , air-filled, loops of distal small bowel. No freeintraperitoneal air. No abnormal soft tissue mass. Signed: Liv Elliott MDReport Verified Date/ Time: 01/19/2018 16:04:31 Reading Location: [facility] Radiology Reading Room [id number] 12:03:00 Test Item Value Reference Range Comments CARBAMAZEPINE LEVEL (BEAKER) (test umzv=090) 20.4 ug/mL 4.0-12.0 POCT-GLUCOSE [id number] 11:03:00 Test Item Value Reference Range Comments POC-GLUCOSE METER (BEAKER) 109 mg/dL 70-110 TESTED AT [address] (test adfa=9463) [facility] [address] POCT-GLUCOSE [id number] 08:21:00 Test Item Value Reference Range Comments POC-GLUCOSE METER (BEAKER) 94 mg/dL 70-110 TESTED AT [address] (test lxja=9444) [facility] [address] BASIC METABOLIC [id number] 06:31:00 Test Item Value Reference Range Comments SODIUM (BEAKER) (test 142 meq/L 136-145 hess=693) POTASSIUM (BEAKER) (test 3.6 meq/L 3.5-5.1 bxpr=688) CHLORIDE (BEAKER) (test 114 meq/L 98-107 xyrr=354) CO2 (BEAKER) (test 20 meq/L 22-29 uktg=167) BLOOD UREA NITROGEN 11 mg/dL 7-21 (BEAKER) (test jfvv=841) CREATININE (BEAKER) (test 1.04 mg/dL 0.57-1.25 irkp=485) GLUCOSE RANDOM (BEAKER) 92 mg/dL 70-105 (test zygb=202) CALCIUM (BEAKER) (test 9.2 mg/dL 8.4-10.2 jtyu=462) EGFR (BEAKER) (test mL/min/1.73 sq m INSUFFICIENT CLINICAL DATA gybn=8861) TO CALCULATE ESTIMATED GFR. HEPATIC FUNCTION [id number] 06:29:00 Test Item Value Reference Range Comments TOTAL PROTEIN (BEAKER) (test vmdj=020) 7.4 gm/dL 6.0-8.3 ALBUMIN (BEAKER) (test yaig=6732) 4.2 g/dL 3.5-5.0 BILIRUBIN TOTAL (BEAKER) (test ddlh=276) 0.3 mg/dL 0.2-1.2 BILIRUBIN DIRECT (BEAKER) (test fihc=739) 0.2 mg/dL 0.1-0.5 ALKALINE PHOSPHATASE (BEAKER) (test tvrx=603) 98 U/L 40-150 AST (SGOT) (BEAKER) (test gojy=910) 13 U/L 5-34 ALT (SGPT) (BEAKER) (test fahr=014) 11 U/L 6-55 CBC W/PLT COUNT & AUTO [id number] 06:03:00 Test Item Value Reference Range Comments WHITE BLOOD CELL COUNT (BEAKER) (test rlfh=588) 10.6 K/ L 3.5-10.5 RED BLOOD CELL COUNT (BEAKER) (test rgco=832) 4.78 M/ L 4.63-6.08 HEMOGLOBIN (BEAKER) (test xftp=378) 15.1 GM/DL 13.7-17.5 HEMATOCRIT (BEAKER) (test twhc=110) 46.2 % 40.1-51.0 MEAN CORPUSCULAR VOLUME (BEAKER) (test tpgq=879) 96.7 fL 79.0-92.2 MEAN CORPUSCULAR HEMOGLOBIN (BEAKER) (test 31.6 pg 25.7-32.2 hsvv=591) MEAN CORPUSCULAR HEMOGLOBIN CONC (BEAKER) (test 32.7 GM/DL 32.3-36.5 vykd=781) RED CELL DISTRIBUTION WIDTH (BEAKER) (test 14.1 % 11.6-14.4 ujdu=272) PLATELET COUNT (BEAKER) (test egtc=333) 271 K/CU MM 150-450 MEAN PLATELET VOLUME (BEAKER) (test fmvb=309) 10.7 fL 9.4-12.4 NUCLEATED RED BLOOD CELLS (BEAKER) (test 0 /100 WBC 0-0 qxwz=569) NEUTROPHILS RELATIVE PERCENT (BEAKER) (test 75 % vmnt=681) LYMPHOCYTES RELATIVE PERCENT (BEAKER) (test 14 % pfhp=276) MONOCYTES RELATIVE PERCENT (BEAKER) (test 10 % ztro=993) EOSINOPHILS RELATIVE PERCENT (BEAKER) (test 1 % hxjx=557) BASOPHILS RELATIVE PERCENT (BEAKER) (test 0 % gtzd=534) NEUTROPHILS ABSOLUTE COUNT (BEAKER) (test 7.97 K/ L 1.78-5.38 ldvr=298) LYMPHOCYTES ABSOLUTE COUNT (BEAKER) (test 1.43 K/ L 1.32-3.57 xbsz=449) MONOCYTES ABSOLUTE COUNT (BEAKER) (test 1.07 K/ L 0.30-0.82 mebu=587) EOSINOPHILS ABSOLUTE COUNT (BEAKER) (test 0.05 K/ L 0.04-0.54 cxqy=041) BASOPHILS ABSOLUTE COUNT (BEAKER) (test 0.03 K/ L 0.01-0.08 wxtx=393) IMMATURE GRANULOCYTES-RELATIVE PERCENT (BEAKER) 0 % 0-1 (test ostb=4785) URINALYSIS W/ [id number] 00:36:00 Test Item Value Reference Range Comments COLOR (BEAKER) (test dgan=755) Yellow CLARITY (BEAKER) (test jujp=690) Hazy SPECIFIC GRAVITY UA (BEAKER) (test edxf=005) 1.014 1.001-1.035 PH UA (BEAKER) (test bplz=685) 8.5 5.0-8.0 PROTEIN UA (BEAKER) (test dbvt=154) 20 mg/dL Negative GLUCOSE UA (BEAKER) (test ffzg=545) Negative Negative KETONES UA (BEAKER) (test fqfl=663) Negative Negative BILIRUBIN UA (BEAKER) (test whzq=337) Negative Negative BLOOD UA (BEAKER) (test xvfx=227) Small Negative NITRITE UA (BEAKER) (test etkq=774) Negative Negative LEUKOCYTE ESTERASE UA (BEAKER) (test wqnf=704) Negative Negative UROBILINOGEN UA (BEAKER) (test bgof=447) 0.2 mg/dL 0.2-1.0 RBC UA (BEAKER) (test bhwp=375) 13 /HPF WBC UA (BEAKER) (test jbtd=021) 3 /HPF MUCUS (BEAKER) (test lsdo=0463) Rare AMORPHOUS CRYSTALS (BEAKER) (test lvay=9790) Occasional SOURCE(BEAKER) (test uemw=4132) Urine, [place] CREATINE KINASE (CK), TOTAL AND [id number] 00:29:00 Test Item Value Reference Range Comments CREATINE KINASE TOTAL (BEAKER) (test ifpf=434) 212 U/L 29-200 CREATINE KINASE-MB (BEAKER) (test untp=116) 0.9 ng/mL 0.0-6.6 CREATINE KINASE-MB INDEX (BEAKER) (test cylp=177) 0.4 % CK-MB Reference Range:<6.7 Normal6.7-10.0 Borderline>10.0 Abnormal
--- NOTE | 2018-03-17 16:48 | EDPHYS ---
Physician Documentation [facility] Name: Naeem Melgar Age: 47 yrs Sex: Male : 1970 Arrival Date: 03/17/2018 Time: 15:53 Bed 18 Private MD: None, None ED Physician Phil Mohan HPI: 03/17 16:38 This 47 yrs old Black Male presents to ER via Ambulatory with complaints of Medication abdias Refill. 16:38 The patient presents to the emergency department requesting refill(s) for: Risperdal or abdias lithium. Historical: - Allergies: 16:07 No Known Allergies; aj - Home Meds: 16:07 Tegretol Oral [Active]; Risperdal Oral [Active]; amlodipine oral [Active]; aj - PMHx: 16:07 Bipolar disorder; Hypertension; aj - PSHx: 16:07 Achilles tendon; aj - Immunization history:: Adult Immunizations up to date. - Social history:: Smoking status: Patient uses tobacco products, smokes one pack cigarettes per day. - Ebola Screening: : Patient negative for fever greater than or equal to 101.5 degrees Fahrenheit, and additional compatible Ebola Virus Disease symptoms Patient denies exposure to infectious person Patient denies travel to an Ebola-affected area in the 21 days before illness onset No symptoms or risks identified at this time. ROS: 16:41 Constitutional: Negative for fever, chills, and weight loss, Eyes: Negative for injury, abdias pain, redness, and discharge, ENT: Negative for injury, pain, and discharge, Neck: Negative for injury, pain, and swelling, Cardiovascular: Negative for chest pain, palpitations, and edema, Respiratory: Negative for shortness of breath, cough, wheezing, and pleuritic chest pain, Abdomen/GI: Negative for abdominal pain, nausea, vomiting, diarrhea, and constipation, Back: Negative for injury and pain, : Negative for injury, bleeding, discharge, and swelling, MS/Extremity: Negative for injury and deformity, Skin: Negative for injury, rash, and discoloration, Neuro: Negative for headache, weakness, numbness, tingling, and seizure, Allergy/Immunology: Negative for hives, rash, and allergies, Endocrine: Negative for neck swelling, polydipsia, polyuria, polyphagia, and marked weight changes. 16:41 Psych: Positive for anxiety, bipoplar do. Exam: 16:41 Constitutional: This is a well developed, well nourished patient who is awake, alert, abdias and in no acute distress. Head/Face: Normocephalic, atraumatic. Eyes: Pupils equal round and reactive to light, extra-ocular motions intact. Lids and lashes normal. Conjunctiva and sclera are non-icteric and not injected. Cornea within normal limits. Periorbital areas with no swelling, redness, or edema. ENT: Nares patent. No nasal discharge, no septal abnormalities noted. Tympanic membranes are normal and external auditory canals are clear. Oropharynx with no redness, swelling, or masses, exudates, or evidence of obstruction, uvula midline. Mucous membranes moist. Neck: Trachea midline, no thyromegaly or masses palpated, and no cervical lymphadenopathy. Supple, full range of motion without nuchal rigidity, or vertebral point tenderness. No Meningismus. Chest/axilla: Normal chest wall appearance and motion. Nontender with no deformity. No lesions are appreciated. Cardiovascular: Regular rate and rhythm with a normal S1 and S2. No gallops, murmurs, or rubs. Normal PMI, no JVD. No pulse deficits. Respiratory: Lungs have equal breath sounds bilaterally, clear to auscultation and percussion. No rales, rhonchi or wheezes noted. No increased work of breathing, no retractions or nasal flaring. Abdomen/GI: Soft, non-tender, with normal bowel sounds. No distension or tympany. No guarding or rebound. No evidence of tenderness throughout. Back: No spinal tenderness. No costovertebral tenderness. Full range of motion. Skin: Warm, dry with normal turgor. Normal color with no rashes, no lesions, and no evidence of cellulitis. MS/ Extremity: Pulses equal, no cyanosis. Neurovascular intact. Full, normal range of motion. Neuro: Awake and alert, GCS 15, oriented to person, place, time, and situation. Cranial nerves II-XII grossly intact. Motor strength 5/5 in all extremities. Sensory grossly intact. Cerebellar exam normal. Normal gait. 16:41 Psych: Behavior/mood is anxious, Affect is animated, Oriented to person, place, time, Patient has no thoughts/intents to harm self or others. Judgement / Insight is normal. Memory is normal. Delusions/hallucinations are not present. Vital Signs: 16:07 BP 135 / 95; Pulse 108; Resp 20; Temp 97.9; Pulse Ox 98% on R/A; Weight 101.15 kg; aj Height 5 ft. 9 in. (175.26 cm); 16:07 Body Mass Index 32.93 (101.15 kg, 175.26 cm) MDM: 16:09 Patient medically screened. [facility] 16:49 Data reviewed: vital signs, nurses notes. [facility] Administered Medications: 17:18 Drug: RisperDAL 2 mg Route: PO; 17:18 Follow up: Response: Medication administered at discharge. Disposition: 03/17/18 16:47 Discharged to Home. Impression: Bipolar disorder, Bipolar disorder, current episode mixed, mild. - Condition is Stable. - Discharge Instructions: Bipolar Disorder. - Prescriptions for Risperdal 3 mg Oral tablet - take 1 tablet by ORAL route once daily; 20 tablet. - Medication Reconciliation Form, Thank You Letter, Antibiotic Education, Prescription Opioid Use form. - Follow up: Private Physician; When: 2 - 3 days; Reason: Recheck today's complaints, Continuance of care, Re-evaluation by your physician. Follow up: Ramone Esteban MD; When: 2 - 3 days; Reason: Recheck today's complaints, Re-evaluation by your physician. - Problem is new. - Symptoms have improved. Signatures: Ana Capps RN RN sv Myers, Amanda, RN RN aj Anderson, Corey, MD MD [facility] Corrections: (The following items were deleted from the chart) 17:19 16:47 03/17/2018 16:47 Discharged to Home. Impression: Bipolar disorder; Bipolar sv disorder, current episode mixed, mild. Condition is Stable. Forms are Medication Reconciliation Form, Thank You Letter, Antibiotic Education, Prescription Opioid Use. Follow up: Private Physician; When: 2 - 3 days; Reason: Recheck today's complaints, Continuance of care, Re-evaluation by your physician. Follow up: Ramone Esteban; When: 2 - 3 days; Reason: Recheck today's complaints, Re-evaluation by your physician. Problem is new. Symptoms have improved. [facility]
--- NOTE | 2018-03-17 16:48 | ER ---
Nurse's Notes [facility] Name: Naeem Melgar Age: 47 yrs Sex: Male : 1970 Arrival Date: 03/17/2018 Time: 15:53 Bed 18 Private MD: None, None Diagnosis: Bipolar disorder;Bipolar disorder, current episode mixed, mild Presentation: 03/17 16:05 Presenting complaint: Patient states: Patient reports he is out of his Tegretol and aj risperidone for his bipolar disorder and needs a refill. Denies SI or HI. Transition of care: patient was not received from another setting of care. Onset of symptoms was March 17, 2018. Risk Assessment: Do you want to hurt yourself or someone else? Patient reports no desire to harm self or others. Initial Sepsis Screen: Does the patient meet any 2 criteria? No. Patient's initial sepsis screen is negative. Does the patient have a suspected source of infection? No. Patient's initial sepsis screen is negative. Care prior to arrival: None. 16:05 Method Of Arrival: Ambulatory 16:05 Acuity: ESPERANZA 5 aj Triage Assessment: 16:07 General: Appears in no apparent distress. comfortable, Behavior is calm, cooperative, aj appropriate for age. Pain: Denies pain. Neuro: Level of Consciousness is awake, alert, obeys commands, Oriented to person, place, time, situation, Appropriate for age. Respiratory: Airway is patent Respiratory effort is even, unlabored, Respiratory pattern is regular, symmetrical. Derm: Skin is intact, is healthy with good turgor, Skin is pink, warm \T\ dry. normal. Historical: - Allergies: 16:07 No Known Allergies; aj - Home Meds: 16:07 Tegretol Oral [Active]; Risperdal Oral [Active]; amlodipine oral [Active]; aj - PMHx: 16:07 Bipolar disorder; Hypertension; aj - PSHx: 16:07 Achilles tendon; aj - Immunization history:: Adult Immunizations up to date. - Social history:: Smoking status: Patient uses tobacco products, smokes one pack cigarettes per day. - Ebola Screening: : Patient negative for fever greater than or equal to 101.5 degrees Fahrenheit, and additional compatible Ebola Virus Disease symptoms Patient denies exposure to infectious person Patient denies travel to an Ebola-affected area in the 21 days before illness onset No symptoms or risks identified at this time. Screenin:15 Abuse screen: Denies threats or abuse. Denies injuries from another. Nutritional sv screening: No deficits noted. Tuberculosis screening: No symptoms or risk factors identified. Fall Risk None identified. Assessment: 16:30 General: Appears in no apparent distress. comfortable, Behavior is cooperative, sv appropriate for age. Pain: Denies pain. Neuro: Level of Consciousness is awake, alert, obeys commands, Oriented to person, place, time, situation, Moves all extremities. Full function Gait is steady, Speech is normal. Respiratory: Respiratory effort is even, unlabored, Respiratory pattern is regular, symmetrical. Derm: Skin is pink, warm \T\ dry. Musculoskeletal: Range of motion: intact in all extremities. 17:15 Reassessment: Patient appears in no apparent distress at this time. No changes from sv previously documented assessment. Patient and/or family updated on plan of care and expected duration. Pain level reassessed. Patient is alert, oriented x 3, equal unlabored respirations, skin warm/dry/pink. Vital Signs: 16:07 BP 135 / 95; Pulse 108; Resp 20; Temp 97.9; Pulse Ox 98% on R/A; Weight 101.15 kg; aj Height 5 ft. 9 in. (175.26 cm); 16:07 Body Mass Index 32.93 (101.15 kg, 175.26 cm) aj ED Course: 15:53 Patient arrived in ED. sb2 15:53 None, None is Private Physician. sb2 16:06 Triage completed. aj 16:07 Arm band placed on left wrist. Patient placed in an exam room. aj 16:09 Phil Mohan MD is Attending Physician. abdias 16:47 Raomne Esteban MD is Referral Physician. abdias 16:54 Ana Capps, LUCA is Primary Nurse. sv 17:15 Patient has correct armband on for positive identification. Adult w/ patient. sv 17:18 No provider procedures requiring assistance completed. Patient did not have IV access sv during this emergency room visit. Administered Medications: 17:18 Drug: RisperDAL 2 mg Route: PO; sv 17:18 Follow up: Response: Medication administered at discharge. sv Outcome: 16:47 Discharge ordered by . abdias 17:18 Discharged to home ambulatory, with family. sv 17:18 Condition: stable 17:18 Discharge instructions given to patient, Instructed on discharge instructions, follow up and referral plans. medication usage, Demonstrated understanding of instructions, follow-up care, medications, Prescriptions given X 1. 17:19 Patient left the ED. sv Signatures: Ana Capps, Jacinta Hurst RN, RN RN aj Anderson, Corey, MD MD cha Billeau, Rose sb2
[2018-03-17] MEDS ORDERED: RISPERIDONE 1 MG TABLET PO ONE (18:00)
== END 2018-03-17 17:19 | disposition home or self-care (01) ==
LOC: ER 15:50
DX: F31.61 Bipolar disorder, current episode mixed, mild (principal); I10 Essential (primary) hypertension; F17.210 Nicotine dependence, cigarettes, uncomplicated
CPT/HCPCS: 99283